=== PATIENT | male | born 1955 | race Caucasian/White ===

== ENCOUNTER → 2017-12-08 | Outpatient (REF) | payer OTHER | LOC: M SMT 16:54 | DX: R97.20 Elevated prostate specific antigen [PSA] (principal) ==

== ENCOUNTER → 2018-01-13 | Outpatient (CLI) | payer OTHER | LOC: M SMT 08:27 | DX: C61 Malignant neoplasm of prostate (principal); N41.9 Inflammatory disease of prostate, unspecified | CPT/HCPCS: 55700 ==

== ENCOUNTER → 2019-03-30 | Outpatient (CLI) | payer MEDICARE, OTHER ==
--- NOTE | 2019-03-30 13:22 | REPPI ---
Prostate sonography: History: Elevated PSA prostate cancer. Sonographic findings: Glandular dimensions are measured at 4.0 x 3.1 x 5.1 cm with a calculated glandular volume of 33.2 ml. Transrectal sonographic guidance is provided to Dr. Leonardo who performed trans rectal ultrasound guided needle biopsy procedure . Electronically Signed by Sam Garcia MD 03/30/2019 01:13 P
== END ==
LOC: M SMT PRO 10:12
PROVIDERS: ATTEND Urology
DX: C61 Malignant neoplasm of prostate (principal)
CPT/HCPCS: 55700; 76942; G0416

== ENCOUNTER → 2020-05-02 | Outpatient (CLI) | payer MEDICARE, OTHER ==
--- NOTE | 2020-05-02 13:46 | REPPI ---
INDICATION: ELEVATED PSA. COMPARISON: None. TECHNIQUE: Transrectal prostate sonography. FINDINGS: Trans rectal prostate is performed. Glandular dimensions are measured at 3.6 x 3.0 x 5.2 cm with a calculated glandular volume of 229.4 ml. Transrectal sonographic guidance is provided to Dr. Leonardo who performed trans rectal ultrasound guided needle biopsy procedure. IMPRESSION: Transrectal prostate sonographic findings as above. <Electronically signed by Bernard Garcia > 05/02/20 [id number]
== END ==
LOC: M SMT PRO 08:50
PROVIDERS: ATTEND Urology
DX: C61 Malignant neoplasm of prostate (principal)
CPT/HCPCS: 76942; G0416

== ENCOUNTER → 2021-07-24 | Outpatient (CLI) | payer MEDICARE, OTHER | LOC: M RAD 07:45 | PROVIDERS: ATTEND Internal Medicine | DX: I10 Essential (primary) hypertension (principal) ==

== ENCOUNTER → 2021-07-31 | Outpatient (REF) | payer MEDICARE, OTHER ==
[2021-07-31 13:04] LABS: AMORPHOUS SEDIMENT SMALL (NEGATIVE); BACTERIA, URINE AUTO NEGATIVE (NEGATIVE); CALCIUM OXALATE CRYSTALS SMALL; MUCUS, URINE SMALL (NEGATIVE); RBC, URINE AUTO 96 /HPF (0-3); SQUAMOUS EPITHELIAL CELL UR AU 0 /HPF (0-6); WBC, URINE AUTO 6 /HPF (0-3)
[2021-07-31 14:35] LABS: CREATININE, URINE 96.4 MG/DL; MAU/CREAT RATIO 4543.5 MCG/MG (0.0-30.0)
== END ==
LOC: M LAB REF 12:15
PROVIDERS: ATTEND Internal Medicine
DX: R31.9 Hematuria, unspecified (principal)

== ENCOUNTER → 2021-10-03 | Outpatient (REF) | payer MEDICARE, OTHER ==
[2021-10-03 16:31] LABS: RBC, URINE 20-30 /hpf (0-3)
[2021-10-03 16:32] LABS: RENAL EPITHELIAL CELLS, URINE SMALL AMOUNT /hpf; SQUAMOUS EPITHELIAL CELL URINE SMALL AMOUNT /hpf (SMALL AMT)
[2021-10-03 16:34] LABS: AMORPHOUS SEDIMENT, URINE SMALL AMOUNT (NEGATIVE); BACTERIA, URINE SMALL AMOUNT; HYALINE CAST, URINE 0-1 /lpf (0-1); MUCUS, URINE SMALL AMOUNT (NEGATIVE)
== END ==
LOC: M LAB REF 16:01
PROVIDERS: ATTEND Internal Medicine
DX: R31.9 Hematuria, unspecified (principal)

== ENCOUNTER → 2021-10-24 | Outpatient (CLI) | payer MEDICARE, OTHER ==
[~2021-10-24] MED LIST: ISOVUE-370 76% 100ML VIAL As Ordered ONE
== END ==
LOC: M RAD 08:32
PROVIDERS: ATTEND Urology
DX: R31.1 Benign essential microscopic hematuria (principal)
CPT/HCPCS: 74178; Q9967

== ENCOUNTER → 2022-02-13 | Outpatient (CLI) | payer MEDICARE, OTHER | LOC: M PLAIMG 09:16 | PROVIDERS: ATTEND Internal Medicine | DX: R91.1 Solitary pulmonary nodule (principal) ==

== ENCOUNTER → 2022-04-10 | Outpatient (REF) | payer MEDICARE, OTHER ==
[2022-04-10 17:22] LABS: CREATININE, URINE 292.2 MG/DL
[2022-04-11 09:17] LABS: MALB URINE SIEMENS > 3800.0 MG/DL; MAU/CREAT RATIO 1300.4 MCG/MG (0.0-30.0)
== END ==
LOC: M LAB REF 16:09
PROVIDERS: ATTEND Internal Medicine
DX: I12.9 Hypertensive chronic kidney disease with stage 1 through stage 4 chronic kidney disease, or unspecified chronic kidney disease (principal); R80.1 Persistent proteinuria, unspecified; N18.9 Chronic kidney disease, unspecified

== ENCOUNTER → 2022-05-09 | Outpatient (REF) | payer MEDICARE, OTHER ==
[2022-05-09 19:08] LABS: TOTAL PROTEIN,RANDOM URINE 1035.8 MG/DL (0.0-14.0)
[2022-05-09 19:11] LABS: CREATININE,RANDOM URINE 256.2 MG/DL
== END ==
LOC: M LAB REF 17:10
PROVIDERS: ATTEND Internal Medicine Nephrology
DX: R80.9 Proteinuria, unspecified (principal)

== ENCOUNTER → 2022-06-17 | Outpatient (REF) | payer MEDICARE, OTHER ==
[2022-06-17 18:42] LABS: C REACTIVE PROTEIN QUANTITATIV < 0.40 MG/DL (<1.0); COMPLEMENT C3 130.1 MG/DL (90.0-170.0)
[2022-06-17 18:43] LABS: COMPLEMENT C4 24.8 MG/DL (12-36)
== END ==
LOC: M LAB REF 16:53
PROVIDERS: ATTEND Internal Medicine Nephrology
DX: R80.9 Proteinuria, unspecified (principal); N18.32 Chronic kidney disease, stage 3b; M35.04 Sjogren syndrome with tubulo-interstitial nephropathy

== ENCOUNTER → 2022-06-25 | Outpatient (POV) | payer MEDICARE, OTHER ==
[~2022-06-25] VITALS: Ht 175.3 cm; Wt 96.3 kg
[~2022-06-25] MED LIST changes: +AMLO25TA PO; +BRIM0.2S13 OP; -ISOVUE-370 76% 100ML VIAL As Ordered ONE; +LEVO50TA5 PO; +OMEP1CAP73 PO; +PRAV40TA2 PO; +SILD25TA2 PO
[2022-06-25 09:00] VITALS: BP 150/72
== END ==
LOC: M IRPOV 08:51
PROVIDERS: ATTEND Radiology Diagnostic Radiology
DX: R94.4 Abnormal results of kidney function studies (principal); I10 Essential (primary) hypertension; R80.9 Proteinuria, unspecified; Z87.891 Personal history of nicotine dependence; Z84.1 Family history of disorders of kidney and ureter

== ENCOUNTER → 2022-07-03 | Outpatient (CLI) | payer MEDICARE, OTHER ==
[~2022-07-03] MED LIST changes: +LIDOCAINE 1% MDV 20ML VIAL As Ordered ONE; +MIDAZOLAM INJ 2MG/2ML VIAL As Ordered ONE; +NS 1,000 ML IV SCH; +diphenhydrAMINE 50MG/ML VIAL As Ordered ONE; +fentaNYL 100 MCG/2 ML INJECTION As Ordered ONE
[2022-07-03 16:00] VITALS: BP 159/90
== END ==
LOC: M IRPRO 10:28
PROVIDERS: ATTEND Internal Medicine Nephrology
DX: R80.9 Proteinuria, unspecified (principal); N28.9 Disorder of kidney and ureter, unspecified
CPT/HCPCS: 50200; 77012; 88300; 99152; 99153; J1200; J2250; J3010

== ENCOUNTER → 2022-07-25 | Outpatient (CLI) | payer MEDICARE, OTHER ==
[~2022-07-25] MED LIST changes: -LIDOCAINE 1% MDV 20ML VIAL As Ordered ONE; -MIDAZOLAM INJ 2MG/2ML VIAL As Ordered ONE; -NS 1,000 ML IV SCH; -diphenhydrAMINE 50MG/ML VIAL As Ordered ONE; -fentaNYL 100 MCG/2 ML INJECTION As Ordered ONE
== END ==
LOC: M IRPRO 07:19
PROVIDERS: ATTEND Internal Medicine Nephrology
DX: N04.9 Nephrotic syndrome with unspecified morphologic changes (principal); Z53.9 Procedure and treatment not carried out, unspecified reason

== ENCOUNTER → 2022-08-05 | Outpatient (CLI) | payer MEDICARE, OTHER ==
[~2022-08-05] MED LIST changes: +LIDOCAINE 1% MDV 20ML VIAL As Ordered ONE; +MIDAZOLAM INJ 2MG/2ML VIAL As Ordered ONE; +NS 1,000 ML IV SCH; +diphenhydrAMINE 50MG/ML VIAL As Ordered ONE; +fentaNYL 100 MCG/2 ML INJECTION As Ordered ONE; +hydrALAZINE 20MG/ML 1ML VIAL As Ordered ONE
[2022-08-05 06:45] VITALS: TEMP 99.1
[2022-08-05 10:15] VITALS: BP 127/70; O2SAT 96
== END ==
LOC: M IRPRO 06:32
PROVIDERS: ATTEND Radiology Diagnostic Radiology
DX: N04.9 Nephrotic syndrome with unspecified morphologic changes (principal); N28.1 Cyst of kidney, acquired
CPT/HCPCS: 50200; 76942; 88300; 99152; 99153; J0360; J2250; J3010

== ENCOUNTER → 2022-08-21 | Outpatient (REF) | payer MEDICARE, OTHER ==
[~2022-08-21] MED LIST changes: -LIDOCAINE 1% MDV 20ML VIAL As Ordered ONE; -MIDAZOLAM INJ 2MG/2ML VIAL As Ordered ONE; -NS 1,000 ML IV SCH; -diphenhydrAMINE 50MG/ML VIAL As Ordered ONE; -fentaNYL 100 MCG/2 ML INJECTION As Ordered ONE; -hydrALAZINE 20MG/ML 1ML VIAL As Ordered ONE
[2022-08-26 17:07] LABS: FREE KAPPA LIGHT CHAINS SERUM 30.1 mg/L (3.3-19.4); FREE LAMBDA LIGHT CHAINS SERUM 14.1 mg/L (5.7-26.3); KAPPA/LAMBDA RATIO SERUM 2.13 (0.26-1.65)
== END ==
LOC: M LAB REF 17:00
PROVIDERS: ATTEND Internal Medicine Nephrology
DX: N18.32 Chronic kidney disease, stage 3b (principal)

== ENCOUNTER → 2022-12-05 | Outpatient (REF) | payer MEDICARE, OTHER ==
[2022-12-05 19:27] LABS: CREATININE,RANDOM URINE 75.1 MG/DL
[2022-12-05 19:29] LABS: TOTAL PROTEIN,RANDOM URINE 219.3 MG/DL (0.0-14.0)
== END ==
LOC: M LAB REF 16:51
PROVIDERS: ATTEND Internal Medicine Nephrology
DX: N02.8 Recurrent and persistent hematuria with other morphologic changes (principal)

== ENCOUNTER → 2023-02-28 | Outpatient (REF) | payer MEDICARE, OTHER ==
[2023-02-28 18:58] LABS: TOTAL PROTEIN,RANDOM URINE 74.1 MG/DL (0.0-14.0)
[2023-02-28 19:03] LABS: CREATININE,RANDOM URINE 49.5 MG/DL
== END ==
LOC: M LAB REF 16:56
PROVIDERS: ATTEND Internal Medicine Nephrology
DX: R80.9 Proteinuria, unspecified (principal)

== ENCOUNTER → 2023-03-10 | Outpatient (CLI) | payer MEDICARE, OTHER | LOC: M RAD 09:57 | PROVIDERS: ATTEND Internal Medicine | DX: R91.1 Solitary pulmonary nodule (principal); J84.9 Interstitial pulmonary disease, unspecified; I70.0 Atherosclerosis of aorta; I25.10 Atherosclerotic heart disease of native coronary artery without angina pectoris; I51.7 Cardiomegaly ==

== ENCOUNTER → 2023-07-03 | Outpatient (REF) | payer MEDICARE, OTHER ==
[2023-07-03 18:14] LABS: TOTAL PROTEIN,RANDOM URINE 37.2 MG/DL (0.0-14.0)
[2023-07-03 18:19] LABS: CREATININE,RANDOM URINE 84.7 MG/DL
== END ==
LOC: M LAB REF 16:51
PROVIDERS: ATTEND Internal Medicine Nephrology
DX: R80.9 Proteinuria, unspecified (principal)

== ENCOUNTER 2023-07-30 10:35 | Day surgery (SDC) | payer MEDICARE, OTHER ==
[~2023-07-30] VITALS: Ht 12.7 cm; Wt 4.1 kg
[~2023-07-30 10:35] MED LIST changes: -BRIM0.2S13 OP; +BRIM0.2S13 OU; +LIDOCAINE 2% 100MG/5ML SDV (FOR ANES.) As Ordered ONE; +LOSA50TA28 PO; +fentaNYL 100 MCG/2 ML INJECTION As Ordered ONE; +propofoL 200 MG/20 ML VIAL As Ordered ONE
[2023-07-30] MEDS: NS 1,000 ML IV ONE (10:56)
[2023-07-30 12:32] VITALS: TEMP 97.6
[2023-07-30 12:46] VITALS: BP 135/67; O2SAT 95
== END 2023-07-30 12:53 | disposition home or self-care (01) ==
LOC: M OPP 10:35
PROVIDERS: ATTEND Internal Medicine Gastroenterology
DX: Z12.11 Encounter for screening for malignant neoplasm of colon (principal); D12.6 Benign neoplasm of colon, unspecified; K64.0 First degree hemorrhoids; K57.30 Diverticulosis of large intestine without perforation or abscess without bleeding; K22.89 Other specified disease of esophagus; K44.9 Diaphragmatic hernia without obstruction or gangrene; R12 Heartburn; Z79.02 Long term (current) use of antithrombotics/antiplatelets; Z79.899 Other long term (current) drug therapy; E03.9 Hypothyroidism, unspecified; I10 Essential (primary) hypertension
CPT/HCPCS: 43239; 45385; 88305; J3010

== ENCOUNTER 2024-05-20 08:09 | Day surgery (SDC) | payer MEDICARE, OTHER ==
[~2024-05-20] VITALS: Ht 177.8 cm; Wt 97.5 kg
[~2024-05-20 08:09] MED LIST changes: +BRIM5DRO4; -LIDOCAINE 2% 100MG/5ML SDV (FOR ANES.) As Ordered ONE; +PHENYLEPHRINE 10% OPHTH SOL 5ML OS PRN; +TADA20TA PO; +XALA0.007; -fentaNYL 100 MCG/2 ML INJECTION As Ordered ONE; -propofoL 200 MG/20 ML VIAL As Ordered ONE
[2024-05-20] MEDS: CYCLOPENTOLATE 1% OPHTH SOLN 2ML BTL OS SCH (09:04)
[2024-05-20] MEDS: TROPICAMIDE 1% OPHTH SOLN 15ML OS SCH (09:04)
[2024-05-20] MEDS: PHENYLEPHRINE 2.5% OPHTH SOL 2ML OS SCH (09:04)
[2024-05-20] MEDS: LIDOCAINE 3.5 % 1ML OPHTH TOPICAL GEL OU ONE (09:05)
[2024-05-20] MEDS: OFLOXACIN 0.3 % (OCUFLOX) OPTH SOL 5ML OS ONE (09:05)
[2024-05-20] MEDS: LIDOCAINE 1% SDV 5ML VIAL As Ordered ONE (09:39)
[2024-05-20] MEDS: BSS IRRIG/VANCO(10MG)/TOBRA(5MG)/EPINEPH(1:1000-0.5CC)500ML BAG-ORONLY As Ordered ONE (09:39)
[2024-05-20] MEDS ORDERED: fentaNYL 100 MCG/2 ML INJECTION As Ordered ONE (09:43)
[2024-05-20] MEDS ORDERED: MIDAZOLAM INJ 2MG/2ML VIAL As Ordered ONE (09:43)
[2024-05-20] MEDS: BALANCED SALT SOLN OPHTH 15 ML BTL As Ordered ONE (09:45)
[2024-05-20] MEDS: CEFUROXIME 1MG/0.1ML INTRACAMERAL INJ As Ordered ONE (09:45)
[2024-05-20 09:58] VITALS: BP 140/77; TEMP 98.1; O2SAT 95
== END 2024-05-20 10:10 | disposition home or self-care (01) ==
LOC: M SDC 08:09
PROVIDERS: ATTEND Ophthalmology
DX: H25.12 Age-related nuclear cataract, left eye (principal); H57.03 Miosis; I12.9 Hypertensive chronic kidney disease with stage 1 through stage 4 chronic kidney disease, or unspecified chronic kidney disease; N18.32 Chronic kidney disease, stage 3b; C61 Malignant neoplasm of prostate; E03.9 Hypothyroidism, unspecified; E78.00 Pure hypercholesterolemia, unspecified; Z79.899 Other long term (current) drug therapy; Z79.890 Hormone replacement therapy; Z92.21 Personal history of antineoplastic chemotherapy; Z92.3 Personal history of irradiation; K21.9 Gastro-esophageal reflux disease without esophagitis; N02.B1 Recurrent and persistent immunoglobulin A nephropathy with glomerular lesion; E66.09 Other obesity due to excess calories; Z68.32 Body mass index [BMI] 32.0-32.9, adult; R73.09 Other abnormal glucose
CPT/HCPCS: 66982; J0697; J2250; J3010; V2632

== ENCOUNTER 2024-05-27 05:54 | Day surgery (SDC) | payer MEDICARE, OTHER ==
[~2024-05-27] VITALS: Ht 172.7 cm; Wt 97.4 kg
[~2024-05-27 05:54] MED LIST changes: -PHENYLEPHRINE 10% OPHTH SOL 5ML OS PRN
[2024-05-27] MEDS ORDERED: PHENYLEPHRINE 10% OPHTH SOL 5ML OD PRN (06:00)
[2024-05-27] MEDS: LIDOCAINE 3.5 % 1ML OPHTH TOPICAL GEL OU ONE (06:42)
[2024-05-27] MEDS: OFLOXACIN 0.3 % (OCUFLOX) OPTH SOL 5ML OD ONE (06:42)
[2024-05-27] MEDS: TROPICAMIDE 1% OPHTH SOLN 15ML OD SCH (06:42)
[2024-05-27] MEDS: CYCLOPENTOLATE 1% OPHTH SOLN 2ML BTL OD SCH (06:42)
[2024-05-27] MEDS: PHENYLEPHRINE 2.5% OPHTH SOL 2ML OD SCH (06:42)
[2024-05-27] MEDS ORDERED: MIDAZOLAM INJ 2MG/2ML VIAL As Ordered ONE (07:09)
[2024-05-27] MEDS ORDERED: fentaNYL 100 MCG/2 ML INJECTION As Ordered ONE (07:09)
[2024-05-27] MEDS: LIDOCAINE 1% SDV 5ML VIAL As Ordered ONE (07:43)
[2024-05-27] MEDS: BSS IRRIG/VANCO(10MG)/TOBRA(5MG)/EPINEPH(1:1000-0.5CC)500ML BAG-ORONLY As Ordered ONE (07:44)
[2024-05-27] MEDS: CEFUROXIME 1MG/0.1ML INTRACAMERAL INJ As Ordered ONE (07:44)
[2024-05-27 08:00] VITALS: BP 136/76; TEMP 97.7; O2SAT 98
== END 2024-05-27 08:22 | disposition home or self-care (01) ==
LOC: M SDC 05:54
PROVIDERS: ATTEND Ophthalmology
DX: H25.11 Age-related nuclear cataract, right eye (principal); I12.9 Hypertensive chronic kidney disease with stage 1 through stage 4 chronic kidney disease, or unspecified chronic kidney disease; N18.32 Chronic kidney disease, stage 3b; E03.9 Hypothyroidism, unspecified; E78.00 Pure hypercholesterolemia, unspecified; C61 Malignant neoplasm of prostate; Z92.21 Personal history of antineoplastic chemotherapy; Z92.3 Personal history of irradiation; Z79.899 Other long term (current) drug therapy; Z79.890 Hormone replacement therapy; N02.B1 Recurrent and persistent immunoglobulin A nephropathy with glomerular lesion; E66.09 Other obesity due to excess calories; Z87.891 Personal history of nicotine dependence; Z68.32 Body mass index [BMI] 32.0-32.9, adult
CPT/HCPCS: 66984; J0697; J2250; J3010; V2632

== ENCOUNTER → 2024-06-15 | Outpatient (REF) | payer MEDICARE, OTHER ==
[2024-06-15 18:04] LABS: TOTAL PROTEIN,RANDOM URINE 46.3 MG/DL (0.0-14.0)
[2024-06-15 18:09] LABS: CREATININE,RANDOM URINE 127.7 MG/DL
== END ==
LOC: M LAB REF 17:13
PROVIDERS: ATTEND Internal Medicine Nephrology
DX: N02.8 Recurrent and persistent hematuria with other morphologic changes (principal)

== ENCOUNTER → 2024-12-16 | Outpatient (REF) | payer MEDICARE, OTHER ==
[~2024-12-16] MED LIST changes: -PRAV40TA2 PO; +PRAV40TA85 PO
[2024-12-16 17:56] LABS: TOTAL PROTEIN,RANDOM URINE 44.3 MG/DL (0.0-14.0)
== END ==
LOC: M LAB REF 16:56
PROVIDERS: ATTEND Internal Medicine Nephrology
DX: R80.9 Proteinuria, unspecified (principal)

== ENCOUNTER → 2025-02-01 | Outpatient (CLI) | payer MEDICARE, OTHER ==
[~2025-02-01] MED LIST changes: +PROHANCE 279.3MG/ML 15ML VIAL As Ordered ONE; +PROHANCE 279.3MG/ML 5ML VIAL As Ordered ONE
== END ==
LOC: M RAD 12:20
PROVIDERS: ATTEND Urology
DX: C61 Malignant neoplasm of prostate (principal)
CPT/HCPCS: 72197; A9579